=== PATIENT | male | born 1955 | race Caucasian/White ===

== ENCOUNTER 2018-04-02 19:18 | Inpatient (IN) | payer MEDICAID ==
[~2018-04-02] VITALS: Ht 180.3 cm; Wt 88.0 kg
[2018-04-02] MEDS ORDERED: HYDROCODONE/ACETAMINOPHEN 5/325MG TABLET PO ONE (20:00)
[2018-04-02] MEDS ORDERED: HYDROCODONE/ACETAMINOPHEN 10/325MG TABLET PO ONE (21:00)
[2018-04-02 22:06] LABS: CHLORIDE 105 mEq/L (98-107)
[2018-04-02 22:07] LABS: INR 1.1; PROTHROMBIN TIME 10.9 sec (9.1-11.1)
[2018-04-02 22:09] LABS: BASOPHILS % 0.7 % (0.0-2.0); EOSINOPHILS % 1.4 % (0.0-5.0); HEMATOCRIT. 30.3 % (42.0-52.0); HEMOGLOBIN. 10.1 g/dL (14.0-18.0); LYMPHOCYTES % 21.6 % (20.0-50.0); MEAN CORPUSCULAR HEMOGLOBIN 27.7 pg (28.0-32.0); MEAN CORPUSCULAR VOLUME 83.2 fL (80.0-94.0); MEAN PLATELET VOLUME 7.3 fl (7.4-10.4); MONOCYTES % 13.4 % (2.0-8.0); NEUTROPHILS % 62.9 % (40.0-76.0); PLATELET 459 x1000/uL (130-400); RED BLOOD CELL COUNT 3.65 mill/uL (4.7-6.1); RED CELL DISTRIBUTION WIDTH 16.6 % (11.6-14.6)
[2018-04-02 22:35] LABS: CLARITY URINE TURBID (CLEAR); COLOR URINE YELLOW (YELLOW); KETONES URINE TRACE (NEGATIVE); LEUKOCYTE ESTERASE URINE 3+ (NEGATIVE); NITRITE URINE NEGATIVE (NEGATIVE); OCCULT BLOOD URINE 2+ (NEGATIVE); PH URINE 5.5 (4.5-8.0); PROTEIN URINE 3+ (NEGATIVE); SPECIFIC GRAVITY URINE 1.019 (1.005-1.030)
[2018-04-02] MEDS ORDERED: MORPHINE SULFATE 4 MG/ML CPJ (NOT FOR IM USE) IV NR (23:10)
[2018-04-02] MEDS ORDERED: ONDANSETRON HCL 4MG/2ML INJ IV NR (23:10)
[2018-04-02] MEDS ORDERED: CEFTRIAXONE 1 G PREMIX 50 ML IV NR (23:15)
[2018-04-03 00:23] LABS: CLARITY URINE TURBID (CLEAR); COLOR URINE YELLOW (YELLOW); KETONES URINE TRACE (NEGATIVE); LEUKOCYTE ESTERASE URINE 3+ (NEGATIVE); NITRITE URINE NEGATIVE (NEGATIVE); OCCULT BLOOD URINE 1+ (NEGATIVE); PH URINE 8.5 (4.5-8.0); PROTEIN URINE 3+ (NEGATIVE); SPECIFIC GRAVITY URINE 1.022 (1.005-1.030)
[2018-04-03 00:24] LABS: CLARITY URINE TURBID (CLEAR); COLOR URINE YELLOW (YELLOW); KETONES URINE NEGATIVE (NEGATIVE); LEUKOCYTE ESTERASE URINE 3+ (NEGATIVE); NITRITE URINE NEGATIVE (NEGATIVE); OCCULT BLOOD URINE NEGATIVE (NEGATIVE); PH URINE >=9.0 (4.5-8.0); PROTEIN URINE 4+ (NEGATIVE); UROBILINOGEN URINE 0.2 E.U./dL (0.2-1.0)
[2018-04-03 06:00] VITALS: BP 139/72
[2018-04-03] MEDS ORDERED: DIPHENHYDRAMINE 50MG/ML VIAL IV PRN (06:30)
[2018-04-03] MEDS ORDERED: NA PHOS,M-B/NA PHOS,DI-BA ENEMA 118ML PR PRN (06:30)
[2018-04-03] MEDS ORDERED: GUAIFENESIN 200MG/10ML SUGAR FREE UDC PO PRN (06:30)
[2018-04-03] MEDS ORDERED: ACETAMINOPHEN 325MG TABLET PO PRN (06:30)
[2018-04-03] MEDS ORDERED: LORAZEPAM 2MG/ML CPJ IV PRN (06:30)
[2018-04-03] MEDS ORDERED: MAGNESIUM/ALUMINUM HYDROXIDE/SIMETHICONE 30ML UDC PO PRN (06:30)
[2018-04-03] MEDS ORDERED: CLONIDINE 0.1MG TABLET PO PRN (06:30)
[2018-04-03] MEDS ORDERED: ONDANSETRON HCL 4MG/2ML INJ IV PRN (06:30)
[2018-04-03] MEDS ORDERED: IPRATROPIUM/ALBUTEROL 0.5-3(2.5)MG/3ML NEB INH PRN (06:30)
[2018-04-03 08:00] VITALS: BP 129/71
[2018-04-03] MEDS: ENOXAPARIN 40MG/0.4ML SYR SUBCUT SCH ×2 (08:33→08:37)
[2018-04-03] MEDS: ASPIRIN 81MG EC TABLET PO SCH (08:37)
[2018-04-03 12:00] VITALS: BP 123/76
[2018-04-03] MEDS: SODIUM CHLORIDE 0.45% 1,000 ML IV SCH (12:35)
[2018-04-03] MEDS: MORPHINE SULFATE 4 MG/ML CPJ (NOT FOR IM USE) IV PRN ×2 (13:49→20:24)
[2018-04-03 16:00] VITALS: BP 116/75
[2018-04-03] MEDS ORDERED: ABIR250T PO (22:32)
[2018-04-03] MEDS ORDERED: HYDR-4009 MT (22:33)
[2018-04-03] MEDS ORDERED: SENN-170 MT (22:33)
[2018-04-03] MEDS ORDERED: CALC-30 MT (22:33)
[2018-04-03] MEDS ORDERED: HYDR-4001 MT (22:33)
[2018-04-03] MEDS ORDERED: PRED-543 MT (22:34)
[2018-04-03] MEDS ORDERED: DOCU-150 MT (22:34)
[2018-04-03] MEDS ORDERED: OMEP20CA10 MT (22:34)
[2018-04-03] MEDS ORDERED: CHOL200010 MT (22:35)
[2018-04-04] VITALS: BP 121/71
[2018-04-04] MEDS: CEFTRIAXONE 1 G PREMIX 50 ML IV SCH ×2 (00:06→23:25)
[2018-04-04] MEDS: MORPHINE SULFATE 4 MG/ML CPJ (NOT FOR IM USE) IV PRN ×2 (00:07→16:45)
[2018-04-04 04:00] VITALS: BP 125/71
[2018-04-04 08:00] VITALS: BP 109/59
[2018-04-04] MEDS: ASPIRIN 81MG EC TABLET PO SCH (08:26)
[2018-04-04] MEDS: ENOXAPARIN 40MG/0.4ML SYR SUBCUT SCH (08:27)
[2018-04-04] MEDS: SODIUM CHLORIDE 0.45% 1,000 ML IV SCH ×2 (09:00→20:13)
[2018-04-04 12:00] VITALS: BP 107/66
[2018-04-04 16:00] VITALS: BP 115/57
[2018-04-04 17:27] LABS: BASOPHILS % 0.7 % (0.0-2.0); EOSINOPHILS % 2.2 % (0.0-5.0); HEMATOCRIT. 28.4 % (42.0-52.0); HEMOGLOBIN. 9.5 g/dL (14.0-18.0); LYMPHOCYTES % 23.7 % (20.0-50.0); MEAN CORPUSCULAR HEMOGLOBIN 27.6 pg (28.0-32.0); MEAN CORPUSCULAR VOLUME 82.6 fL (80.0-94.0); MEAN PLATELET VOLUME 7.3 fl (7.4-10.4); MONOCYTES % 10.5 % (2.0-8.0); NEUTROPHILS % 62.9 % (40.0-76.0); PLATELET 433 x1000/uL (130-400); RED BLOOD CELL COUNT 3.44 mill/uL (4.7-6.1); RED CELL DISTRIBUTION WIDTH 16.4 % (11.6-14.6)
[2018-04-04 17:50] LABS: CHLORIDE 104 mEq/L (98-107)
[2018-04-04 20:00] VITALS: BP 104/60
[2018-04-04] MEDS: HYDROCODONE/ACETAMINOPHEN 10/325MG TABLET PO PRN (22:04)
[2018-04-05] VITALS (22 sets, daily range): BP systolic 111–154; BP diastolic 53–85
[2018-04-05] MEDS ORDERED: SODIUM BICARBONATE 4% (2.4MEQ) 5ML VIAL IV ONE (08:34)
[2018-04-05] MEDS ORDERED: FENTANYL CITRATE/PF 50MCG/ML 2ML VIAL ONE (08:34)
[2018-04-05] MEDS ORDERED: LIDOCAINE HCL 1% 20ML VIAL (Pyxis) INJ ONE (08:34)
[2018-04-05] MEDS: ASPIRIN 81MG EC TABLET PO SCH ×2 (09:00→09:59)
[2018-04-05] MEDS: ENOXAPARIN 40MG/0.4ML SYR SUBCUT SCH ×2 (09:00→09:58)
[2018-04-05] MEDS ORDERED: IOHEXOL-300 50 ML BOTTLE IV ONE (09:39)
[2018-04-05] MEDS ORDERED: FENTANYL CITRATE/PF 50MCG/ML 2ML VIAL IV ONE (10:15)
[2018-04-05] MEDS: SODIUM CHLORIDE 0.45% 1,000 ML IV SCH (11:19)
[2018-04-05] MEDS: MORPHINE SULFATE 4 MG/ML CPJ (NOT FOR IM USE) IV PRN (17:39)
[2018-04-06] VITALS: BP 137/77
[2018-04-06] MEDS: CEFTRIAXONE 1 G PREMIX 50 ML IV SCH ×2 (00:08→23:30)
[2018-04-06] MEDS: SODIUM CHLORIDE 0.45% 1,000 ML IV SCH ×2 (00:11→15:04)
[2018-04-06] MEDS: MORPHINE SULFATE 4 MG/ML CPJ (NOT FOR IM USE) IV PRN (00:16)
[2018-04-06 04:00] VITALS: BP 129/54
[2018-04-06 08:00] VITALS: BP 121/61
[2018-04-06] MEDS: DOCUSATE SODIUM 100MG CAPSULE PO PRN ×2 (08:36→14:57)
[2018-04-06 12:00] VITALS: BP 130/76
[2018-04-06 16:00] VITALS: BP 133/73
[2018-04-06] MEDS ORDERED: NON FORMULARY PATIENT HOME MED EA XX SCH (17:15)
[2018-04-06] MEDS: HYDROCODONE/ACETAMINOPHEN 10/325MG TABLET PO PRN (20:13)
[2018-04-07] VITALS: BP 133/74
[2018-04-07] MEDS: SODIUM CHLORIDE 0.45% 1,000 ML IV SCH ×2 (03:40→17:00)
[2018-04-07 04:00] VITALS: BP 140/78
[2018-04-07 08:00] VITALS: BP 125/59
[2018-04-07] MEDS ORDERED: ZYTIGA 250 MG PO SCH (09:00)
[2018-04-07] MEDS: ENOXAPARIN 40MG/0.4ML SYR SUBCUT SCH (10:07)
[2018-04-07] MEDS: ASPIRIN 81MG EC TABLET PO SCH (10:07)
[2018-04-07] MEDS: PREDNISONE 5MG TABLET PO SCH ×2 (11:49→17:09)
[2018-04-07 12:00] VITALS: BP 139/75
[2018-04-07 16:00] VITALS: BP 143/79
[2018-04-07] MEDS: HYDROCODONE/ACETAMINOPHEN 10/325MG TABLET PO PRN ×2 (17:10→23:03)
[2018-04-07 20:00] VITALS: BP 143/79
[2018-04-07] MEDS: CEFTRIAXONE 1 G PREMIX 50 ML IV SCH (23:12)
[2018-04-08] VITALS: BP 136/72
[2018-04-08 04:00] VITALS: BP 131/65
[2018-04-08] MEDS: ZYTIGA 250 MG PO SCH (06:03)
[2018-04-08] MEDS: HYDROCODONE/ACETAMINOPHEN 10/325MG TABLET PO PRN (06:10)
[2018-04-08] MEDS: SODIUM CHLORIDE 0.45% 1,000 ML IV SCH ×2 (06:20→19:40)
[2018-04-08 08:00] VITALS: BP 138/69
[2018-04-08] MEDS: ASPIRIN 81MG EC TABLET PO SCH (08:55)
[2018-04-08] MEDS: LACTULOSE 20G/30ML UDC PO SCH (08:55)
[2018-04-08] MEDS: PREDNISONE 5MG TABLET PO SCH ×2 (08:55→17:11)
[2018-04-08] MEDS: ENOXAPARIN 40MG/0.4ML SYR SUBCUT SCH (08:56)
[2018-04-08 12:00] VITALS: BP 150/84
[2018-04-08 16:00] VITALS: BP_SYST 129; BP_DIAS 54; BP_DIAS 84
[2018-04-08 20:00] VITALS: BP 139/70
[2018-04-08] MEDS: CEFTRIAXONE 1 G PREMIX 50 ML IV SCH (21:48)
[2018-04-09] VITALS (7 sets, daily range): BP systolic 131–154; BP diastolic 58–80
[2018-04-09] MEDS: ZYTIGA 250 MG PO SCH (06:43)
[2018-04-09] MEDS: ASPIRIN 81MG EC TABLET PO SCH (08:41)
[2018-04-09] MEDS: LACTULOSE 20G/30ML UDC PO SCH (08:41)
[2018-04-09] MEDS: SODIUM CHLORIDE 0.45% 1,000 ML IV SCH (08:42)
[2018-04-09] MEDS: ENOXAPARIN 40MG/0.4ML SYR SUBCUT SCH (08:42)
[2018-04-09] MEDS: PREDNISONE 5MG TABLET PO SCH ×2 (08:43→16:03)
[2018-04-09] MEDS: HYDROCODONE/ACETAMINOPHEN 5/325MG TABLET PO PRN (21:02)
[2018-04-10] VITALS: BP 136/69
[2018-04-10 04:00] VITALS: BP 141/67
[2018-04-10] MEDS: ZYTIGA 250 MG PO SCH (05:55)
[2018-04-10] MEDS: DOCUSATE SODIUM 100MG CAPSULE PO PRN (06:12)
[2018-04-10] MEDS: HYDROCODONE/ACETAMINOPHEN 5/325MG TABLET PO PRN ×3 (06:32→21:05)
[2018-04-10] MEDS: ASPIRIN 81MG EC TABLET PO SCH (08:15)
[2018-04-10] MEDS: PREDNISONE 5MG TABLET PO SCH ×2 (08:16→16:10)
[2018-04-10] MEDS: ENOXAPARIN 40MG/0.4ML SYR SUBCUT SCH (08:16)
[2018-04-10] MEDS: LACTULOSE 20G/30ML UDC PO SCH (08:16)
[2018-04-10 12:00] VITALS: BP 122/69
[2018-04-10 16:00] VITALS: BP 154/84
[2018-04-10 20:00] VITALS: BP 139/71
[2018-04-11] VITALS: BP 146/72
[2018-04-11 04:00] VITALS: BP 139/79
[2018-04-11] MEDS: ZYTIGA 250 MG PO SCH (06:27)
[2018-04-11 07:23] LABS: HEMATOCRIT 29.3 % (42.0-52.0); HEMOGLOBIN 9.9 g/dL (14.0-18.0); MEAN CORPUSCULAR HEMOGLOBIN 27.8 pg (28.0-32.0); MEAN CORPUSCULAR VOLUME 82.4 fL (80.0-94.0); PLATELET 565 x1000/uL (130-400); RED BLOOD CELL COUNT 3.55 mill/uL (4.7-6.1); RED CELL DISTRIBUTION WIDTH 16.1 % (11.6-14.6)
[2018-04-11 08:00] VITALS: BP 153/69
[2018-04-11] MEDS: LACTULOSE 20G/30ML UDC PO SCH (09:23)
[2018-04-11] MEDS: ENOXAPARIN 40MG/0.4ML SYR SUBCUT SCH (09:23)
[2018-04-11] MEDS: ASPIRIN 81MG EC TABLET PO SCH (09:24)
[2018-04-11] MEDS: PREDNISONE 5MG TABLET PO SCH ×2 (09:24→17:40)
[2018-04-11 12:00] VITALS: BP 145/73
[2018-04-11 16:00] VITALS: BP 138/75
[2018-04-11] MEDS: HYDROCODONE/ACETAMINOPHEN 5/325MG TABLET PO PRN ×2 (17:40→23:27)
[2018-04-12] VITALS (7 sets, daily range): BP systolic 135–161; BP diastolic 71–81
[2018-04-12] MEDS: ZYTIGA 250 MG PO SCH (06:00)
[2018-04-12] MEDS: ASPIRIN 81MG EC TABLET PO SCH (09:00)
[2018-04-12] MEDS: PREDNISONE 5MG TABLET PO SCH ×2 (09:00→16:53)
[2018-04-12] MEDS: LACTULOSE 20G/30ML UDC PO SCH (09:00)
[2018-04-12] MEDS: ENOXAPARIN 40MG/0.4ML SYR SUBCUT SCH (09:00)
[2018-04-12] MEDS: HYDROCODONE/ACETAMINOPHEN 5/325MG TABLET PO PRN ×2 (10:53→16:12)
== END 2018-04-12 17:14 | disposition home or self-care (01) | DRG 466 ==
LOC: ER 19:18 → 6EST 04-03 00:19 → EDBEDREQ 04-03 00:35 → EDBEDREQTM 04-03 00:35 → EDBEDREQDT 04-03 00:35 → ENRESERV 04-03 04:03
PROVIDERS: ADMIT Internal Medicine; ATTEND Internal Medicine
PROC: BT131ZZ Fluoroscopy of Bilateral Kidneys using Low Osmolar Contrast (ICD-10-PCS; principal; 2018-04-05)
PROC: 0T25X0Z Change Drainage Device in Kidney, External Approach (ICD-10-PCS; 2018-04-05)
PROC: 0T25X0Z Change Drainage Device in Kidney, External Approach (ICD-10-PCS; 2018-04-05)
DX: T83.512A Infection and inflammatory reaction due to nephrostomy catheter, initial encounter (principal); A41.9 Sepsis, unspecified organism; E44.0 Moderate protein-calorie malnutrition; C61 Malignant neoplasm of prostate; N39.0 Urinary tract infection, site not specified; Z60.2 Problems related to living alone; K59.00 Constipation, unspecified; Y83.8 Other surgical procedures as the cause of abnormal reaction of the patient, or of later complication, without mention of misadventure at the time of the procedure; Z91.19 Patient's noncompliance with other medical treatment and regimen; Z93.3 Colostomy status; Z79.899 Other long term (current) drug therapy; Z68.27 Body mass index [BMI] 27.0-27.9, adult; Y92.89 Other specified places as the place of occurrence of the external cause
CPT/HCPCS: 36415; 50435; 72131; 85027; 87070; 87077; 87186; 96374; 96375; 97162; 99152; 99153; 99285; A6261; C1725; C1729; C1769; C1893; J0696; J1650; J2270; J2405; J3010; J3490; J7040; J7042; J7050; J7512; Q9967